=== PATIENT | male | born 1995 | race Two or more races ===

== ENCOUNTER 2018-04-23 17:03 | Inpatient (IN) | payer MEDICAID ==
[~2018-04-23] VITALS: Ht 188 cm; Wt 88.0 kg
[2018-04-23] MEDS ORDERED: PIPERACILLIN/TAZ 3.375G PREMIX 50 ML IV ONE (23:45)
[2018-04-23] MEDS ORDERED: SODIUM CHLORIDE 0.9% 1000ML BAG (SEPSIS BOLUS) IV ONE (23:45)
[2018-04-23] MEDS ORDERED: VANCOMYCIN 1 G PREMIX 200 ML IV ONE (23:45)
[2018-04-24] MEDS ORDERED: KETOROLAC 30MG/ML VIAL IV ONE
[2018-04-24] MEDS ORDERED: HYDROCODONE/ACETAMINOPHEN 5/325MG TABLET PO ONE
[2018-04-24] MEDS ORDERED: ONDANSETRON HCL 4MG/2ML INJ IV ONE
[2018-04-24 00:51] LABS: BASOPHILS % 0.2 % (0.0-2.0); EOSINOPHILS % 0.1 % (0.0-5.0); HEMATOCRIT. 46.3 % (42.0-52.0); HEMOGLOBIN. 15.8 g/dL (14.0-18.0); MEAN CORPUSCULAR HEMOGLOBIN 28.5 pg (28.0-32.0); MEAN CORPUSCULAR VOLUME 83.4 fL (80.0-94.0); MEAN PLATELET VOLUME 8.7 fl (7.4-10.4); MONOCYTES % 5.2 % (2.0-8.0); NEUTROPHILS % 76.5 % (40.0-76.0); PLATELET 185 x1000/uL (130-400); RED BLOOD CELL COUNT 5.55 mill/uL (4.7-6.1); RED CELL DISTRIBUTION WIDTH 14.6 % (11.6-14.6)
[2018-04-24 00:56] LABS: CHLORIDE 103 mEq/L (98-107)
[2018-04-24 00:59] LABS: PROTHROMBIN TIME 9.8 sec (9.1-11.1)
[2018-04-24 02:18] LABS: CLARITY URINE CLEAR (CLEAR); COLOR URINE DARK YELLOW (YELLOW); KETONES URINE TRACE (NEGATIVE); LEUKOCYTE ESTERASE URINE NEGATIVE (NEGATIVE); NITRITE URINE NEGATIVE (NEGATIVE); OCCULT BLOOD URINE NEGATIVE (NEGATIVE); PROTEIN URINE 2+ (NEGATIVE); SPECIFIC GRAVITY URINE 1.031 (1.005-1.030)
[2018-04-24 04:00] VITALS: BP 151/90
[2018-04-24 05:30] VITALS: BP 151/90
[2018-04-24] MEDS ORDERED: PNEUMOCOCCAL 23-VAL P-SAC VAC 0.5 ML IM ONE (05:30)
[2018-04-24] MEDS ORDERED: HYDROCODONE/ACETAMINOPHEN 5/325MG TABLET PO PRN ×2 (05:30→08:00)
[2018-04-24] MEDS ORDERED: INFLUENZA VIRUS VACCINE(AFLURIA) 0.5ML SYR IM ONE (06:00)
[2018-04-24 06:36] LABS: BASOPHILS % 0.5 % (0.0-2.0); EOSINOPHILS % 0.1 % (0.0-5.0); HEMOGLOBIN. 13.2 g/dL (14.0-18.0); LYMPHOCYTES % 19.9 % (20.0-50.0); MEAN CORPUSCULAR HEMOGLOBIN 28.5 pg (28.0-32.0); MEAN CORPUSCULAR VOLUME 84.2 fL (80.0-94.0); MEAN PLATELET VOLUME 8.7 fl (7.4-10.4); MONOCYTES % 6.8 % (2.0-8.0); NEUTROPHILS % 72.7 % (40.0-76.0); PLATELET 154 x1000/uL (130-400); RED BLOOD CELL COUNT 4.63 mill/uL (4.7-6.1); RED CELL DISTRIBUTION WIDTH 14.2 % (11.6-14.6)
[2018-04-24 06:49] LABS: CHLORIDE 111 mEq/L (98-107)
[2018-04-24 08:00] VITALS: BP 125/69
[2018-04-24] MEDS ORDERED: MAGNESIUM/ALUMINUM HYDROXIDE/SIMETHICONE 30ML UDC PO PRN (08:00)
[2018-04-24] MEDS ORDERED: ACETAMINOPHEN 650MG SUPP PR PRN (08:00)
[2018-04-24] MEDS ORDERED: NA PHOS,M-B/NA PHOS,DI-BA ENEMA 118ML PR PRN (08:00)
[2018-04-24] MEDS ORDERED: IPRATROPIUM/ALBUTEROL 0.5-3(2.5)MG/3ML NEB INH PRN (08:00)
[2018-04-24] MEDS ORDERED: DIPHENHYDRAMINE 50MG/ML VIAL IV PRN (08:00)
[2018-04-24] MEDS ORDERED: CLONIDINE 0.1MG TABLET PO PRN (08:00)
[2018-04-24] MEDS ORDERED: HYDROCODONE/ACETAMINOPHEN 10/325MG TABLET PO PRN (08:00)
[2018-04-24] MEDS ORDERED: DOCUSATE SODIUM 100MG CAPSULE PO PRN (08:00)
[2018-04-24] MEDS ORDERED: GUAIFENESIN 200MG/10ML SUGAR FREE UDC PO PRN (08:00)
[2018-04-24] MEDS ORDERED: ONDANSETRON HCL 4MG/2ML INJ IV PRN (08:00)
[2018-04-24] MEDS ORDERED: CEFTRIAXONE 1,000 MG in DEXTROSE 5% WATER 50 ML IV SCH (08:00)
[2018-04-24] MEDS ORDERED: ACETAMINOPHEN 650MG/20.3ML UDC GT PRN (08:00)
[2018-04-24] MEDS ORDERED: VANCOMYCIN 1 G PREMIX 200 ML IV SCH (08:00)
[2018-04-24] MEDS ORDERED: CEFTRIAXONE 1 G PREMIX 50 ML IV SCH (09:00)
[2018-04-24] MEDS: CEFTRIAXONE 1,000 MG in DEXTROSE 5% WATER 50 ML IV SCH (10:53)
[2018-04-24] MEDS: VANCOMYCIN 1500MG in DEXTROSE 5% WATER 250ML IV SCH ×3 (11:02→22:15)
[2018-04-24 12:00] VITALS: BP 141/80
[2018-04-24] MEDS: ACETAMINOPHEN 325MG TABLET PO PRN ×2 (12:11→21:37)
[2018-04-24] MEDS: SODIUM CHLORIDE 0.9% INJ 3ML FLUSH IVF SCH (14:00)
[2018-04-24 16:00] VITALS: BP 127/71
[2018-04-24 20:00] VITALS: BP 130/80
[2018-04-25] VITALS: BP 128/74
[2018-04-25 04:00] VITALS: BP 118/70
[2018-04-25 04:46] LABS: BASOPHILS % 0.5 % (0.0-2.0); HEMATOCRIT. 38.5 % (42.0-52.0); HEMOGLOBIN. 13.1 g/dL (14.0-18.0); LYMPHOCYTES % 29.7 % (20.0-50.0); MEAN CORPUSCULAR HEMOGLOBIN 28.2 pg (28.0-32.0); MEAN CORPUSCULAR VOLUME 82.7 fL (80.0-94.0); MEAN PLATELET VOLUME 9.2 fl (7.4-10.4); MONOCYTES % 10.9 % (2.0-8.0); NEUTROPHILS % 57.9 % (40.0-76.0); PLATELET 170 x1000/uL (130-400); RED BLOOD CELL COUNT 4.66 mill/uL (4.7-6.1); RED CELL DISTRIBUTION WIDTH 14.3 % (11.6-14.6)
[2018-04-25 04:47] LABS: CHLORIDE 109 mEq/L (98-107)
[2018-04-25 04:56] LABS: LDL CHOLESTEROL 52 mg/dL (5-100)
[2018-04-25 04:58] LABS: HDL CHOLESTEROL 8 mg/dL (40-59)
[2018-04-25] MEDS: VANCOMYCIN 1500MG in DEXTROSE 5% WATER 250ML IV SCH (05:02)
[2018-04-25 08:22] VITALS: BP 146/91
[2018-04-25] MEDS: CEFTRIAXONE 1,000 MG in DEXTROSE 5% WATER 50 ML IV SCH (10:35)
[2018-04-25 12:00] VITALS: BP 146/66
[2018-04-25 16:00] VITALS: BP 119/65
[2018-04-25] MEDS ORDERED: FUROSEMIDE 40MG/4ML VIAL IVP NR (16:00)
[2018-04-25] MEDS ORDERED: FUROSEMIDE 40MG/4ML VIAL IVP SCH (17:15)
[2018-04-25 20:00] VITALS: BP 120/65
[2018-04-25] MEDS: VANCOMYCIN 2,000 MG in DEXT 5% WATER 500 ML IV SCH (20:14)
[2018-04-26] VITALS: BP 145/70
[2018-04-26 04:00] VITALS: BP 150/75
[2018-04-26 08:00] VITALS: BP 116/77
[2018-04-26] MEDS: VANCOMYCIN 2,000 MG in DEXT 5% WATER 500 ML IV SCH ×2 (08:54→20:15)
[2018-04-26] MEDS: CEFTRIAXONE 1,000 MG in DEXTROSE 5% WATER 50 ML IV SCH (11:02)
[2018-04-26 12:00] VITALS: BP 134/79
[2018-04-26] MEDS: SODIUM CHLORIDE 0.9% INJ 3ML FLUSH IVF SCH (14:00)
[2018-04-26 16:00] VITALS: BP 125/73
[2018-04-26 20:00] VITALS: BP 130/70
[2018-04-27] VITALS: BP 124/70
[2018-04-27 04:00] VITALS: BP 120/65
[2018-04-27 08:00] VITALS: BP 128/70
[2018-04-27 09:10] LABS: CHLORIDE 104 mEq/L (98-107)
[2018-04-27] MEDS: CEFTRIAXONE 1,000 MG in DEXTROSE 5% WATER 50 ML IV SCH (09:43)
[2018-04-27 12:00] VITALS: BP 127/68
[2018-04-27] MEDS ORDERED: VANCOMYCIN 1500MG in DEXTROSE 5% WATER 250ML IV SCH (12:00)
[2018-04-27] MEDS: SODIUM CHLORIDE 0.9% INJ 3ML FLUSH IVF SCH (14:00)
[2018-04-27] MEDS ORDERED: AMOX-424 MT (15:32)
[2018-04-27] MEDS ORDERED: SULF1TAB48 MT (15:33)
[2018-04-27 17:12] VITALS: BP 116/52
== END 2018-04-27 17:45 | disposition home or self-care (01) | DRG 383 ==
LOC: ER 17:03 → 7WST 04-24 02:30 → EDBEDREQSVC 04-24 02:36 → EDBEDREQTM 04-24 02:36 → EDBEDREQ 04-24 02:36 → EDBEDREQDT 04-24 02:36 → ENRESERV 04-24 02:49
PROVIDERS: ADMIT Family Medicine; ATTEND Family Medicine
DX: L03.115 Cellulitis of right lower limb (principal); E66.01 Morbid (severe) obesity due to excess calories; I87.8 Other specified disorders of veins; J45.909 Unspecified asthma, uncomplicated; Z90.49 Acquired absence of other specified parts of digestive tract; Z68.24 Body mass index [BMI] 24.0-24.9, adult
CPT/HCPCS: 36415; 71045; 80048; 80061; 80202; 83605; 84145; 84484; 90686; 90732; 93005; 93970; 96365; 96366; 96375; 99285; J0696; J1885; J1940; J2405; J2543; J3370; J7030; J7050; J7060